=== PATIENT | male | born 1965 ===

== ENCOUNTER 2024-03-06 07:54 | Outpatient (CLI) | payer BC, SELFPAY ==
--- NOTE | 2024-03-06 07:59 | US_ITS ---
WS: [id number] RIGHT UPPER QUADRANT ULTRASOUND HISTORY: ABNORMAL RESULTS OF LIVER FUNCTION STUDIES COMPARISON: None available. Liver: 15.9 cm in length. Liver is normal size. Focal fatty steatosis adjacent to the gallbladder. No mass. No bile duct dilatation. Portal Vein: Normal hepatopetal flow with monophasic waveform. Gallbladder: Normally distended gallbladder with no stones or wall thickening. CBD: 0.5 cm Pancreas: As visualized negative. Tail is obscured. Right kidney: 10.5 cm in length. Normal size kidney. Lower pole cortical cyst measures 1.5 x 1.2 x 1. 4 cm. Aorta and IVC: Unremarkable abdominal aorta and IVC. No ascites. US/US liver [id number] IMPRESSION: 1. Normal gallbladder. 2. Focal hepatic steatosis adjacent to the gallbladder. Otherwise negative. 3. Small cortical cyst RIGHT kidney.
== END 2024-03-06 07:55 | disposition home or self-care (01) ==
LOC: RAD 07:54
PROVIDERS: Visit Provider Student in an Organized Health Care Education/Training Program
DX: R94.5 Abnormal results of liver function studies (principal); K76.0 Fatty (change of) liver, not elsewhere classified; N28.1 Cyst of kidney, acquired
CPT/HCPCS: 76705